=== PATIENT | male | born 1955 | race Caucasian/White ===

== ENCOUNTER 2017-12-14 19:27 | Inpatient (IN) | payer BC ==
[2017-12-14] MEDS ORDERED: BISACODYL (EC) 5 MG TAB PO (20:30)
[2017-12-14] MEDS ORDERED: DOCUSATE SODIUM 100 MG CAP PO (20:30)
[2017-12-14] MEDS ORDERED: morphine 2 MG INJ IV (20:30)
[2017-12-14] MEDS ORDERED: NACL 0.9% 3 ML SYG IV (20:30)
[2017-12-14] MEDS ORDERED: ACETAMINOPHEN 325 MG TAB PO (20:30)
[2017-12-14] MEDS ORDERED: ONDANSETRON 4 MG TAB PO (20:30)
[2017-12-14 22:25] LABS: ADD MAN DIFF? NO
[2017-12-14 22:27] LABS: BASOPHILS % 0.3 % (0.0-2.0); EOSINOPHILS # 0.2 10^3/ul (0.0-0.5); EOSINOPHILS % 2.7 % (0.0-7.0); HEMATOCRIT 41.6 % (42.0-52.0); LYMPHOCYTES # 1.7 10^3/ul (0.8-2.9); MEAN CORPUSCULAR HEMOGLOBIN 29.2 pg (29.0-33.0); MEAN CORPUSCULAR HGB CONC 33.7 g/dl (32.0-37.0); MEAN CORPUSCULAR VOLUME 86.8 fl (82.0-101.0); MEAN PLATELET VOLUME 10.2 fl (7.4-10.4); MONOCYTE # 0.5 10^3/ul (0.3-0.9); MONOCYTES % 6.3 % (0.0-11.0); NEUTROPHIL # 5.2 10^3/ul (1.6-7.5); NEUTROPHILS % 68.3 % (39.0-77.0); PLATELET COUNT 166 10^3/UL (140-415); RED BLOOD COUNT 4.79 10^6/ul (4.70-6.10); RED CELL DISTRIBUTION WIDTH 13.9 % (11.5-14.5)
[2017-12-14 22:27] LABS: WHITE BLOOD COUNT 7.6 10^3/ul (4.8-10.8)
[2017-12-14 22:47] LABS: ALANINE AMINOTRANSFERASE 47 IU/L (13-69); ALBUMIN 4.1 g/dl (3.3-4.9); ALBUMIN/GLOBULIN RATIO 1.36; ALKALINE PHOSPHATASE 81 IU/L (42-121); ANION GAP 16 (8-16); ASPARTATE AMINO TRANSFERASE 23 IU/L (15-46); BILIRUBIN,INDIRECT 0.5 mg/dl (0-1.1); BILIRUBIN,TOTAL 0.5 mg/dl (0.2-1.3); BLOOD UREA NITROGEN 17 mg/dl (7-20); CALCIUM 9.1 mg/dl (8.4-10.2); CARBON DIOXIDE 26 mmol/L (21-31); CHLORIDE 105 mmol/L (97-110); CHOL/HDL RATIO 5.2 RATIO; CHOLESTEROL 185 mg/dl (100-200); CREATININE 0.78 mg/dl (0.61-1.24); GLUCOSE 105 mg/dl (70-220); HDL CHOLESTEROL 35 mg/dl (30-78); LDL CHOLESTEROL,CALCULATED 87 mg/dl; MAGNESIUM 2.2 mg/dl (1.7-2.5); POTASSIUM 3.9 mmol/L (3.5-5.1); SODIUM 143 mmol/L (135-144); TOTAL PROTEIN 7.1 g/dl (6.1-8.1); TRIGLYCERIDES 316 mg/dl (0-149)
[2017-12-14 23:01] LABS: HEMOGLOBIN A1C 6.2 % (0-5.9)
[2017-12-15] MEDS ORDERED: morphine LIQ (10 MG/5 ML) CUP PO (19:00)
[2017-12-15] MEDS: ATORVASTATIN 40 MG TAB PO (20:48)
[2017-12-16 09:02] LABS: ADD MAN DIFF? NO
[2017-12-16 09:24] LABS: WHITE BLOOD COUNT 8.3 10^3/ul (4.8-10.8)
[2017-12-16 09:24] LABS: BASOPHILS % 0.2 % (0.0-2.0); EOSINOPHILS # 0.3 10^3/ul (0.0-0.5); EOSINOPHILS % 3.7 % (0.0-7.0); HEMATOCRIT 42.8 % (42.0-52.0); HEMOGLOBIN 14.6 g/dl (14.0-18.0); LYMPHOCYTES # 1.8 10^3/ul (0.8-2.9); LYMPHOCYTES % 21.3 % (15.0-51.0); MEAN CORPUSCULAR HEMOGLOBIN 29.4 pg (29.0-33.0); MEAN CORPUSCULAR HGB CONC 34.1 g/dl (32.0-37.0); MEAN CORPUSCULAR VOLUME 86.1 fl (82.0-101.0); MEAN PLATELET VOLUME 10.9 fl (7.4-10.4); MONOCYTE # 0.4 10^3/ul (0.3-0.9); MONOCYTES % 4.9 % (0.0-11.0); NEUTROPHIL # 5.8 10^3/ul (1.6-7.5); NEUTROPHILS % 69.5 % (39.0-77.0); PLATELET COUNT 154 10^3/UL (140-415); RED BLOOD COUNT 4.97 10^6/ul (4.70-6.10); RED CELL DISTRIBUTION WIDTH 14.2 % (11.5-14.5)
[2017-12-16] MEDS: ASPIRIN (EC) 81 MG TAB PO (09:39)
[2017-12-16 09:40] LABS: ANION GAP 17 (8-16); BLOOD UREA NITROGEN 22 mg/dl (7-20); CARBON DIOXIDE 25 mmol/L (21-31); CHLORIDE 105 mmol/L (97-110); GLUCOSE 109 mg/dl (70-220); POTASSIUM 4.1 mmol/L (3.5-5.1); SODIUM 143 mmol/L (135-144)
[2017-12-16 09:41] LABS: MAGNESIUM 2.1 mg/dl (1.7-2.5)
[2017-12-16 09:41] LABS: PHOSPHORUS 4.4 mg/dl (2.5-4.9)
[2017-12-16 09:45] LABS: TROPONIN-I < 0.012 ng/ml (0.000-0.120)
[2017-12-16] MEDS: hydrALAzine 20 MG INJ IV (10:23)
[2017-12-16] MEDS: LISINOPRIL 5 MG TAB PO (13:10)
[2017-12-16] MEDS: ATORVASTATIN 40 MG TAB PO (21:41)
[2017-12-17] MEDS: LISINOPRIL 5 MG TAB PO (08:37)
[2017-12-17] MEDS: ASPIRIN (EC) 81 MG TAB PO (08:37)
== END 2017-12-17 18:54 | disposition home or self-care (01) | DRG 304 ==
LOC: MS4 19:27
DX: I16.1 Hypertensive emergency (principal); I63.9 Cerebral infarction, unspecified; E78.5 Hyperlipidemia, unspecified; R73.03 Prediabetes
CPT/HCPCS: 70551; 80048; 80053; 80061; 82306; 83036; 83735; 84100; 84443; 84484; 85025; 93306; 93880; 97162; 97167; 97530